=== PATIENT | female | born 1955 | race Caucasian/White ===

== ENCOUNTER 2021-06-25 13:46 | Emergency (ER) | payer OTHER ==
[~2021-06-25] VITALS: Ht 157.4 cm; Wt 107.0 kg
[~2021-06-25 13:46] MED LIST: ASPIRIN81 M1 PO; CITALOPRAM10 MG PO; FISH OIL 10001000 MG PO; FLOMAX0.4 MG PO; HYDROCODONE BIT1 T11 PO; METFORMIN500 MG PO; MULTI VITAMINS1 TAB PO; PRINIVIL10 MG PO; SYNTHROID,LEVO50 MCG PO; VITAMIN C1000 M2 PO
== END 2021-06-25 17:02 | disposition home or self-care (01) ==
LOC: ED 13:46
DX: S93.402A Sprain of unspecified ligament of left ankle, initial encounter (principal); Z88.6 Allergy status to analgesic agent; Z91.040 Latex allergy status; Z88.8 Allergy status to other drugs, medicaments and biological substances; Z79.899 Other long term (current) drug therapy; Z79.82 Long term (current) use of aspirin; W22.8XXA Striking against or struck by other objects, initial encounter; Y93.89 Activity, other specified; Y92.89 Other specified places as the place of occurrence of the external cause; Y99.8 Other external cause status

== ENCOUNTER 2021-10-21 16:49 | Emergency (ER) | payer OTHER ==
[~2021-10-21] VITALS: Wt 104.3 kg
[2021-10-21] MEDS ORDERED: IBUPROFEN600 MG PO (19:18)
== END 2021-10-21 19:16 | disposition home or self-care (01) ==
LOC: ED 16:49
DX: M79.671 Pain in right foot (principal); Z88.6 Allergy status to analgesic agent; Z79.899 Other long term (current) drug therapy; Z79.82 Long term (current) use of aspirin